=== PATIENT | male | born 1985 | race American Indian/Alaskan Native ===

== ENCOUNTER 2019-04-11 10:52 | Emergency (ER) | payer BC ==
[2019-04-11 10:57] VITALS: BP 168/99
[2019-04-11] MEDS ORDERED: DECADRON IM ONE (11:07)
--- NOTE | 2019-04-11 11:07 | Emergency Department Report ---
HPI - General Chief Complaint: Allergic Reaction Time Seen by Provider: 04/11/19 11:03 - HPI HPI: Patient is a 33-year-old male who works for [employer] states he comes in contact with a lot of different chemicals agents at work who states she's had allergic reaction for the past 4-5 days. Patient states started with some hives on his face that has now spread to the torso as well. Patient states she's been taking Benadryl which does help with the itching briefly however the hives do return. He states he has no trouble breathing or for cough. Patient states the hives do come and go in different areas. She does not know exactly which al lergen is issue. ED Past Medical Hx - Past Medical History Previous Medical History?: No - Surgical History Past Surgical History?: No - Social History Smoking Status: Never Smoker Substance Use Type: Alcohol, Other - Medications Home Medications: Home Medications Medication Instructions Recorded Confirmed Last Taken Type predniSONE [Deltasone] 20 mg PO QDAY #5 tab 04/11/19 Unknown Rx ED Review of Systems ROS: Stated complaint: FACIAL PAIN Other details as noted in HPI Comment: All other systems reviewed and negative Physical Exam - Physical Exam Vital Signs: Vital Signs 04/11/19 10:54 Temperature 99.3 F Pulse Rate 85 Respiratory 20 Rate Blood Pressure 168/99 O2 Sat by Pulse 97 Oximetry General: Patient is alert and oriented 3 in no acute distress. Physical Exam: Patient with hives ovarian size to the left face neck posteriorly as well as his back. Body Four View: 1 - Abdomen soft and nontender. Heart tones are within normal limits. Lungs are clear to auscultation. Patient with no difficulty swallowing on HEENT exam. ED Course Vital Signs 04/11/19 10:54 Temperature 99.3 F Pulse Rate 85 Respiratory 20 Rate Blood Pressure 168/99 O2 Sat by Pulse 97 Oximetry ED Medical Decision Making - Medical Decision Making Patient will have steroid therapy started since Benadryl is not helping with his symptoms. Patient also referred to an qa tester for additional testing. Critical care attestation.: If time is entered above; I have spent that time in minutes in the direct care of this critically ill patient, excluding procedure time. ED Disposition Clinical Impression: Allergic urticaria Disposition: DC-01 TO HOME OR SELFCARE Is pt being admited?: No Does the pt Need Aspirin: No Condition: Stable Instructions: Urticaria (ED) Referrals: VENTURA GUAN MD [Staff Physician] - 3-5 Days Time of Disposition: 11:07
== END 2019-04-11 11:31 | disposition home or self-care (01) ==
LOC: ED 10:52
DX: T78.40XA Allergy, unspecified, initial encounter (principal); L50.0 Allergic urticaria; Y92.89 Other specified places as the place of occurrence of the external cause
CPT/HCPCS: 96372; 99282; J1100

== ENCOUNTER 2019-04-18 21:35 | Emergency (ER) | payer BC ==
[2019-04-18 22:29] VITALS: BP 131/79
[2019-04-18] MEDS ORDERED: DECADRON IM ONE (22:30)
--- NOTE | 2019-04-18 22:33 | Emergency Department Report ---
Chief Complaint: Allergic Reaction Stated Complaint: POSSIBLE ALLERGIC REACTION Time Seen by Provider: 04/18/19 22:26 - HPI History of Present Illness: This is a 33 y.o. M. that presents to the ER with pruritic rash to face, BUE, and BLE. Reports similar rash last week. Patient states he work for [employer] and around multiple items and people. He think he was bitten by a bug while at work. Reports itching is worse at night. States the symptoms improved after receiving steroids for a few days then returned. Taking benadryl with no improvement of symptoms Denies others in home with similar symptoms, dyspnea, sore throat, or shortness of breath. - Exam Vital Signs: Vital Signs 04/18/19 22:26 Temperature 98 F Pulse Rate 81 Respiratory 18 Rate Blood Pressure 131/79 O2 Sat by Pulse 100 Oximetry Physical Exam: multiple lines of papules 3-5 mm to the face, bilateral upper extremity and feet. MSE screening note: Focused history and physical exam performed. Due to findings the following was ordered: ED Medical Decision Making - Medical Decision Making This patient was seen by this provider. Vitals are stable and no acute distress. Rash appear to be bed bug rash. Given dexamethasone IM for pruritus. Start Vistaril. Given instructions on how to eradicate home. Patient discharged home stable. ED Disposition for MSE Clinical Impression: Bed bug bite Qualifiers: Encounter type: initial encounter Qualified Code(s): W57.XXXA - Bitten or stung by nonvenomous insect and other nonvenomous arthropods, initial encounter Disposition: - TO HOME OR SELFCARE Is pt being admited?: No Condition: Stable Instructions: Insect Bite or Sting (ED) Additional Instructions: Clean home and clothing with hot water and bag items that can't be cleaned. Prescriptions: hydrOXYzine PAMOATE [Vistaril] 25 mg PO Q6HR PRN #20 capsule PRN Reason: Itching Referrals: [facility] [Provider Group] - 3-5 Days [facility] [Provider Group] - 3-5 Days Time of Disposition: 22:43
== END 2019-04-18 23:00 | disposition home or self-care (01) ==
LOC: ED 21:35
DX: S00.86XA Insect bite (nonvenomous) of other part of head, initial encounter (principal); W57.XXXA Bitten or stung by nonvenomous insect and other nonvenomous arthropods, initial encounter; Y93.89 Activity, other specified; Y92.89 Other specified places as the place of occurrence of the external cause; Y99.8 Other external cause status
CPT/HCPCS: 96372; 99282; J1100

== ENCOUNTER 2020-05-02 07:29 | Emergency (ER) | payer BC ==
[2020-05-02 08:12] VITALS: BP 143/95
--- NOTE | 2020-05-02 08:53 | Emergency Department Report ---
HPI - General Chief Complaint: Eye Problems Time Seen by Provider: 05/02/20 08:38 - HPI HPI: Room 6 The patient is a 34-year-old male present with a chief complaint of right eye irritation. The patient states 2 days ago he fell asleep with his contacts in and believes he rubbed his eye vigorously during sleep. Patient states he awakened with swelling to the right eye redness and pain. The patient was able to remove the contact lens from the right eye. Patient denies purulent drainage or fever. The patient states he has difficulty focusing of the right eye. The patient states he normally wears glasses but did not bring him to the emergency department today. The patient states he is currently wearing a contact lens in his left eye only ED Past Medical Hx - Past Medical History Previous Medical History?: No - Surgical History Past Surgical History?: Yes Additional Surgical History: knee (left) - Family History Family history: no significant - Social History Smoking Status: Never Smoker Substance Use Type: None (Denies illicit drug use), Alcohol (Occasional) - Medications Home Medications: Home Medications Medication Instructions Recorded Confirmed Last Taken Type predniSONE [Deltasone] 20 mg PO QDAY #5 tab 04/11/19 Unknown Rx hydrOXYzine PAMOATE [Vistaril] 25 mg PO Q6HR PRN #20 capsule 04/18/19 Unknown Rx ED Review of Systems ROS: Stated complaint: EYE PAIN Other details as noted in HPI Constitutional: denies: fever Eyes: eye pain, vision change. denies: eye discharge Respiratory: no symptoms reported Endocrine: no symptoms reported Neurological: denies: headache Physical Exam - Physical Exam Vital Signs: Vital Signs 05/02/20 08:08 Temperature 97.9 F Pulse Rate 84 Respiratory 19 Rate Blood Pressure 143/95 O2 Sat by Pulse 97 Oximetry Physical Exam: GENERAL: The patient is well-developed well-nourished male lying on stretcher not appearing to be in acute distress. Eye patch in place. [] HEENT: Normocephalic. Atraumatic. Extraocular motions are intact. Right sclera injected. No hypopyon or hyphema appreciated NECK: Supple. Trachea midline CHEST/LUNGS: There is no respiratory distress noted. SKIN: There is no rash. There is no edema. There is no diaphoresis. NEURO: The patient is awake, alert, and oriented. The patient is cooperative. The patient has no focal neurologic deficits. The patient has normal speech and gait. Patient eloped prior to slit-lamp and Hernandez lamp examination ED Course Vital Signs 05/02/20 08:08 Temperature 97.9 F Pulse Rate 84 Respiratory 19 Rate Blood Pressure 143/95 O2 Sat by Pulse 97 Oximetry ED Medical Decision Making - Medical Decision Making Patient eloped prior to slit lamp and Hernandez lamp examination - Differential Diagnosis Conjunctivitis, iritis, corneal abrasion Critical care attestation.: If time is entered above; I have spent that time in minutes in the direct care of this critically ill patient, excluding procedure time. ED Disposition Clinical Impression: Acute right eye pain Disposition: Z-07 ELOPED Is pt being admited?: No Does the pt Need Aspirin: No Condition: Undetermined Referrals: FANI SIMMONS MD [Staff Physician] - 3-5 Days Time of Disposition: 10:40 (Patient eloped)
[2020-05-02] MEDS ORDERED: BALANCED SALT IRRIG (BSS) OPHTH SOLN 15 ML ONE (09:01)
[2020-05-02] MEDS ORDERED: FLUORESCEIN 1 MG STRIP OP ONE (09:01)
[2020-05-02] MEDS ORDERED: TETRACAINE 0.5% OPHTH SOLN 4ML ONE (09:01)
== END 2020-05-02 10:43 | disposition left against medical advice (07) ==
LOC: ED 07:29
DX: H57.11 Ocular pain, right eye (principal); Z79.899 Other long term (current) drug therapy; Z98.890 Other specified postprocedural states
CPT/HCPCS: 99282